=== PATIENT | male | born 1975 | race Caucasian/White ===

== ENCOUNTER 2022-11-26 10:53 | Emergency (ER) | payer OTHER ==
[~2022-11-26] VITALS: Ht 177.8 cm; Wt 73.0 kg
[2022-11-26] MEDS ORDERED: PIPERACILLIN/TAZOBACTAM 3.375GM/50ML PREMIX IV ONE (11:15)
[2022-11-26] MEDS ORDERED: PIPERACILLIN/TAZ 3.375G PREMIX 50 ML IV NR (11:30)
[2022-11-26] MEDS ORDERED: ACETAMINOPHEN 325MG TABLET PO ONE (13:00)
[2022-11-26] MEDS ORDERED: LIDOCAINE HCL 1% 10 MG/ML 10ML VIAL ONE (13:00)
[2022-11-26 14:05] LABS: CHLORIDE 89 mEq/L (98-107)
[2022-11-26 14:07] LABS: HEMOGLOBIN. 17.3 g/dL (14.0-18.0); MEAN CORPUSCULAR HEMOGLOBIN 27.9 pg (28.0-32.0); MEAN CORPUSCULAR VOLUME 87.1 fL (80.0-94.0); MEAN PLATELET VOLUME 8.2 fl (7.4-10.4); PLATELET 242 x1000/uL (130-400); RED CELL DISTRIBUTION WIDTH 16.8 % (11.6-14.6)
[2022-11-26 14:14] LABS: ETHANOL BLOOD < 10 mg/dL (-10)
[2022-11-26] MEDS ORDERED: MORPHINE SULFATE 4 MG/ML CPJ (NOT FOR IM USE) IV ONE (14:30)
[2022-11-26 14:33] LABS: PLATELET ESTIMATE NORMAL
[2022-11-26 14:51] LABS: BG BASE EXCESS -20.3 mmol/L (-2.0-2.0); BG CARBOXYHEMOGLOBIN 0.2 % (0.5-1.5); BG DEOXYHEMOGLOBIN 0.2 % (0.0-5.0); BG HCO3 ACT 6.3 mmol/L (22.0-26.0); BG OXYGEN SATURATION 99.8 % (92.0-98.5); BG OXYHEMOGLOBIN 98.6 % (94.0-97.0); BG PCO2 19.2 mmHg (35.0-45.0); BG PH 7.133 (7.350-7.450); BG PO2 525.8 mmHg (75.0-100.0); BG SAMPLE SITE LEFT BRACHIAL; BG TOTAL HEMOGLOBIN 20.3 g/dL (12.0-18.0); BG VENT MODE MASK - NRB
[2022-11-26] MEDS ORDERED: SODIUM CHLORIDE 0.9% 1,000 ML IV ONE (15:00)
[2022-11-26] MEDS ORDERED: SODIUM BICARBONATE 150 MEQ in DEXTROSE 5% WATER 1,000 ML IV STA (15:10)
[2022-11-26] MEDS ORDERED: PROPOFOL 10MG/ML 100ML 100 ML IV SCH (16:15)
[2022-11-26] MEDS ORDERED: NOREPINEPHRINE 8MG/250ML PMX 250 ML IV ONE (17:00)
[2022-11-26 17:21] LABS: BG BASE EXCESS -25.2 mmol/L (-2.0-2.0); BG CARBOXYHEMOGLOBIN 0.5 % (0.5-1.5); BG DEOXYHEMOGLOBIN 4.6 % (0.0-5.0); BG HCO3 ACT 7.2 mmol/L (22.0-26.0); BG METHEMOGLOBIN 0.7 % (0.0-1.5); BG OXYGEN SATURATION 95.3 % (92.0-98.5); BG OXYHEMOGLOBIN 94.2 % (94.0-97.0); BG PCO2 36.6 mmHg (35.0-45.0); BG PH 6.914 (7.350-7.450); BG SAMPLE SITE LEFT FEMORAL; BG VENT MODE VENT - AC
[2022-11-26] MEDS ORDERED: FENTANYL 2500MCG/250ML PMX 250 ML IV ONE (18:30)
[2022-11-26] MEDS ORDERED: FENTANYL CITRATE/PF 2,500 MCG in SODIUM CHLORIDE 0.9% 200 ML IV NR (18:30)
[2022-11-26] MEDS ORDERED: MIDAZOLAM 100MG/100ML PMX 100 ML IV PRN (18:30)
[2022-11-26] MEDS ORDERED: MIDAZOLAM HCL 100 MG in SODIUM CHLORIDE 0.9% 80 ML IV PRN (19:29)
[2022-11-26] MEDS ORDERED: NOREPINEPHRINE 8MG/250ML PMX 250 ML IV NR (20:15)
[2022-11-26] MEDS ORDERED: EPINEPHRINE 5 MG in SODIUM CHLORIDE 0.9% 245 ML IV STA (21:06)
[2022-11-26] MEDS ORDERED: EPINEPHRINE 5 MG in SODIUM CHLORIDE 0.9% 245 ML IV SCH (21:15)
[2022-11-26 23:13] VITALS: BP 139/102
== END 2022-11-27 00:15 ==
LOC: ER 10:53 → CANBEDREQ 13:26 → ER 11-27 00:15
DX: M79.89 Other specified soft tissue disorders (principal)
CPT/HCPCS: 31500; 36415; 36573; 36600; 71045; 74176; 80053; 80320; 82375; 82805; 82962; 83605; 83690; 83880; 84484; 85025; 87040; 93005; 96365; 96367; 96375; 99285; C1725; J2250; J2270; J2543; J2704; J3010; J3490; J7050; J7070; Z7610; 94002; A4315; G0480